=== PATIENT | male | born 1935 | race Caucasian/White ===

== ENCOUNTER → 2016-12-03 | Outpatient (CLI) | payer OTHER ==
[~2016-12-03] MED LIST: ACTOPLUS MET PO; ACTOS; AMARYL PO; ASPIRIN PO; LASIX PO; LISINOPRIL; LISINOPRIL PO; LOPRESSOR PO; METFORMIN; PLAVIX; PLAVIX PO; ZESTORETIC 20/11 TAB PO; ZOCOR; ZOCOR PO; ZYLOPRIM; ZYLOPRIM PO
--- NOTE | ~2016-12-03 | BD1 ---
[facility] A Service of [facility] & [facility] RADIOLOGY TEXT RESULTS PATIENT: SOLEDAD LEIVA LOCATION: [facility] : 35 UNIT #: [id number] AGE: [address]: Hoang Fuentes MD SEX: M ORDER DR: [id number] [facility] [address] [place], [place] [address] [id number] O MR#: [id number] Acc #: [id number] NAME: SOLEDAD LEIVA : 1935 SEX: M STUDY DATE/TIME: 12/03/2016 14:48 UNIT: [facility] ROOM: STUDY DESCRIPTION: BD Dexa Bone Dens 1+ Site Attending Physician: Hoang Fuentes M.D. Ordering Physician: Hoang Fuentes M.D. Primary Care Physician: Hoang Fuentes M.D. MEDICAL IMAGING REPORT This report is preliminary unless electronic signature is present EXAM Bone densitometry, 12/03/2016 HISTORY 81-year-old male with hyperthyroidism and smoking history. FINDINGS Bone low density of the lumbar spine (L1-L4) is calculated at 1.374 g/cm2. This correlates with a T-score of 2.6 and Z-score of 3.8. This is classified as normal bone mineralization. The bone mineralization of the left proximal femoral neck region is calculated at 1.079 g/cm2. This correlates with a T-score of 1.1 and a Z-score of 2.7. This is normal bone mineralization. IMPRESSION Normal bone mineralization. Dictated by... Aquiles Farris M.D. THIS IS AN ELECTRONICALLY VERIFIED REPORT Aquiles Farris M.D. at 12/04/2016 9:26 AM JUSTIN/ebony TD: 12/04/2016 04:33 JOB #: [id number] MEDICAL IMAGING REPORT COPY
== END | disposition home or self-care (01) ==
LOC: CWCC 14:32
DX: Z13.820 Encounter for screening for osteoporosis (principal); Z88.6 Allergy status to analgesic agent; Z88.5 Allergy status to narcotic agent; Z88.8 Allergy status to other drugs, medicaments and biological substances
CPT/HCPCS: 77080